=== PATIENT | male | born 1980 ===

== ENCOUNTER → 2020-09-12 | Emergency (ER) | payer SELFPAY ==
[~2020-09-12] VITALS: Ht 182.8 cm; Wt 145.1 kg
[~2020-09-12] MED LIST: ACHD5005 PO; CATHETER FLUSH 10 ML SYR IV PRN; HOLD METFORMIN - RECEIVED CONTRAST 20 ML VIAL IV SCH; HYDR-3817 PO; HYDROcodone/APAP 5 MG/325 MG (LORTAB) TAB PO ONE; IOHEXOL 350 MG/ML 100 ML (OMNIPAQUE 350) VIAL IV ONE; NS 100 ML (IVPB) BAG IV ONE; NS IV 1000 ML 1,000 ML IV SCH; ONDANSETRON 4 MG/2 ML (SDV) Z0FRAN IVP ONE; RX-HYDROCODONE/APAP 5/325 MG #4 TAB PK PO PRN; fentaNYL INJ 100 MCG/2 ML AMP IVP ONE
[2020-09-12 16:51] LABS: HEMOGLOBIN 16.1 g/dL (13.3-17.7); MEAN PLATELET VOLUME 11.1 fL (9.0-12.2); WHITE BLOOD COUNT 9.2 10^3/uL (4.3-11.0)
[2020-09-12 16:54] LABS: ALBUMIN 4.1 GM/DL (3.2-4.5); CHLORIDE 107 MMOL/L (98-107); POTASSIUM 4.4 MMOL/L (3.6-5.0); SODIUM 137 MMOL/L (135-145)
[2020-09-12 16:56] LABS: CALCIUM 8.8 MG/DL (8.5-10.1)
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
[2020-09-12 16:57] LABS: GLUCOSE 95 MG/DL (70-105); TOTAL PROTEIN 7.2 GM/DL (6.4-8.2)
[2020-09-12 16:59] LABS: BILIRUBIN,TOTAL 0.6 MG/DL (0.1-1.0)
[2020-09-12 17:00] LABS: ALKALINE PHOSPHATASE 77 U/L (40-136)
[2020-09-12 17:01] LABS: CREATININE SERUM 0.83 MG/DL (0.60-1.30); GFR ESTIMATED > 60
[2020-09-12 17:02] LABS: BILIRUBIN,DIRECT 0.2 MG/DL (0.0-0.3); BILIRUBIN,INDIRECT 0.4 MG/DL; BUN/CREATININE RATIO 16
[2020-09-12 17:03] LABS: ALANINE AMINOTRANSFERASE 58 U/L (0-55)
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
[2020-09-12 17:19] LABS: CARBON DIOXIDE 19 MMOL/L (21-32)
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
[2020-09-12 19:38] LABS: BILIRUBIN,URINE NEGATIVE (NEGATIVE); CLARITY,URINE CLEAR; GLUCOSE, URINE (UA) NEGATIVE (NEGATIVE); KETONES,URINE NEGATIVE (NEGATIVE); LEUKOCYTE ESTERASE ,URINE NEGATIVE (NEGATIVE); NITRITE,URINE NEGATIVE (NEGATIVE); PROTEIN,URINE NEGATIVE (NEGATIVE)
[2020-09-12 19:44] LABS: BACTERIA,URINE NEGATIVE /HPF; COLOR,URINE YELLOW; SQUAMOUS EPITHELIAL CELL,UR RARE /HPF
[2020-09-12 20:21] VITALS: BP 141/92
== END | disposition home or self-care (01) ==
LOC: ER 16:37
DX: S32.048A Other fracture of fourth lumbar vertebra, initial encounter for closed fracture (principal); S06.0X0A Concussion without loss of consciousness, initial encounter; S50.311A Abrasion of right elbow, initial encounter; S50.312A Abrasion of left elbow, initial encounter; R40.2360 Coma scale, best motor response, obeys commands, unspecified time; R40.2140 Coma scale, eyes open, spontaneous, unspecified time; R40.2250 Coma scale, best verbal response, oriented, unspecified time; Z87.891 Personal history of nicotine dependence; V68.5XXA Driver of heavy transport vehicle injured in noncollision transport accident in traffic accident, initial encounter; Y92.410 Unspecified street and highway as the place of occurrence of the external cause
CPT/HCPCS: 70450; 71045; 71260; 72125; 72170; 73030; 73080; 74177; 80048; 80076; 81000; 85027; 93005; 93041; 99284; G0480; 36415; 80320